=== PATIENT | female | born 1940 | race Caucasian/White ===

== ENCOUNTER 2018-12-04 08:51 | Observation (INO) | payer MEDICARE, OTHER ==
[~2018-12-04] VITALS: Ht 152.4 cm; Wt 68.0 kg
--- NOTE | 2018-12-04 09:01 | NUR ---
THIS IS A 78 YEAR OLD FEMALE WHO WAS BIB BY AMBULANCE DUE TO COPD AND CP, PT STATES PAIN 1 AT THIS TIME OUT OF 10. PT HAD NEBULIZER TX AND ASA IN ROUTE. 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
--- NOTE | 2018-12-04 09:54 | NUR ---
PT RESTING, AND ON PHONE, DENIES PAIN OR ANY NEEDS AT THIS TIME.
[2018-12-04] MEDS ORDERED: SODIUM CHLORIDE FLUSH 10ML SYR IVF ONE (10:00)
[2018-12-04] MEDS ORDERED: MORPHINE SULFATE 4 MG/ML, 1ML IVPush PRN (10:00)
[2018-12-04] MEDS ORDERED: ASPIRIN 81 MG TABLET CHEW PO ONE (10:00)
[2018-12-04 10:15] LABS: BASOPHILS # (AUTO) 0.02 x10^3/uL (0-0.1); BASOPHILS % (AUTO) 0 % (0-1); EOSINOPHILS # (AUTO) 0.14 x10^3/uL (0-0.4); EOSINOPHILS % (AUTO) 2 % (1-7); LYMPHOCYTES # (AUTO) 1.44 x10^3/uL (1-3.4); LYMPHOCYTES % (AUTO) 21 % (22-44); MD NO; MEAN CORPUSCULAR HEMOGLOBIN 28.3 pg (27.0-34.8); MEAN CORPUSCULAR HGB CONC 32.1 g/dL (32.4-35.8); MEAN CORPUSCULAR VOLUME 88.3 fL (80-100); MONOCYTES # (AUTO) 0.35 x10^3/uL (0.2-0.8); MONOCYTES % (AUTO) 5 % (2-9); NEUTROPHILS # (AUTO) 5.06 x10^3/uL (1.8-6.8); NEUTROPHILS % (AUTO) 72 % (42-75); PLATELET COUNT 372 x10^3/uL (130-400); RED BLOOD COUNT 4.63 x10^6/uL (3.82-5.3); RED CELL DISTRIBUTION WIDTH 14.4 % (9.6-15.2)
[2018-12-04 10:21] LABS: ALANINE AMINOTRANSFERASE 23 U/L (12-78); ALBUMIN 3.2 g/dL (3.4-5.0); ANION GAP 5 mmol/L (5-15); CALCIUM 8.3 mg/dL (8.5-10.1); CHLORIDE 106 mmol/L (98-107)
[2018-12-04 10:26] LABS: ALKALINE PHOSPHATASE 82 U/L (45-117); BILIRUBIN,TOTAL 0.4 mg/dL (0.2-1.0); CREATININE 0.73 mg/dL (0.55-1.02); TOTAL PROTEIN 6.7 g/dL (6.4-8.2); TROPONIN I < 0.015 ng/mL (0.000-0.045)
--- NOTE | 2018-12-04 11:05 | NUR ---
PT TO CT SCAN VIA [facility]
[2018-12-04] MEDS ORDERED: OMNIPAQUE 350 MG/ML, 100ML BOTTLE ONE (11:25)
[2018-12-04] MEDS ORDERED: SIMBACORT (12:07)
[2018-12-04] MEDS ORDERED: DEXT7.5T5 PO (12:08)
[2018-12-04] MEDS ORDERED: hydrALAzine 20 MG/ML, 1ML IVPush PRN (13:00)
[2018-12-04] MEDS ORDERED: ONDANSETRON 2MG/ML, 2ML IVPush PRN (13:00)
[2018-12-04] MEDS ORDERED: IBUPROFEN 600 MG TABLET PO PRN (13:00)
[2018-12-04] MEDS ORDERED: CEFTRIAXONE PMX 1GM/50ML 50 ML IV SCH (13:00)
[2018-12-04] MEDS ORDERED: ACETAMINOPHEN 325 MG TABLET PO PRN (13:00)
[2018-12-04] MEDS ORDERED: ALBUTEROL/IPRATROPIUM 2.5MG/0.5MG, 3 ML HHN SCH (13:00)
[2018-12-04] MEDS ORDERED: KETOROLAC 30 MG/1 ML IV PRN (13:00)
--- NOTE | 2018-12-04 13:00 | NUR ---
TASK RN: PT REPORT FROM RASHARD MANCUSO. PT CURRENTLY IN CT
[2018-12-04 13:35] LABS: FREE T4 (FREE THYROXINE) 1.01 ng/dL (0.76-1.46)
[2018-12-04] MEDS ORDERED: AZITHROMYCIN 500 MG in SODIUM CHLORIDE 0.9% 250 ML IV SCH (14:00)
[2018-12-04] MEDS: methylPREDNISolone SOD SUCC 125 MG/2 ML IVPush SCH ×2 (14:50→23:22)
[2018-12-04] MEDS: ENOXAPARIN 40 MG/0.4 ML SQ SCH (14:50)
[2018-12-04 14:51] VITALS: BP 125/72
[2018-12-04 17:09] LABS: TROPONIN I < 0.015 ng/mL (0.000-0.045)
[2018-12-04] MEDS ORDERED: DIPHENHYDRAMINE 50 MG CAPSULE PO ONE (17:30)
[2018-12-04] MEDS ORDERED: BUDE10.2 INH (18:16)
[2018-12-04] MEDS ORDERED: albuterol sulfate INH (18:16)
[2018-12-04] MEDS ORDERED: ALBUTEROL/IPRATROPIUM 2.5MG/0.5MG, 3 ML ONE (18:38)
[2018-12-04] MEDS: ALBUTEROL/IPRATROPIUM 2.5MG/0.5MG, 3 ML NPPB SCH (18:40)
[2018-12-04] MEDS: BUDESONIDE 0.5 MG/2 ML INHA INH SCH (18:40)
[2018-12-04 19:27] VITALS: BP 116/67
[2018-12-04 23:21] LABS: TROPONIN I < 0.015 ng/mL (0.000-0.045)
[2018-12-05 01:23] VITALS: BP 107/73
[2018-12-05] MEDS: ALBUTEROL/IPRATROPIUM 2.5MG/0.5MG, 3 ML NPPB SCH ×2 (02:12→07:50)
[2018-12-05 04:39] LABS: BASOPHILS % (AUTO) 0 % (0-1); EOSINOPHILS % (AUTO) 0 % (1-7); LYMPHOCYTES # (AUTO) 0.64 x10^3/uL (1-3.4); LYMPHOCYTES % (AUTO) 11 % (22-44); MD NO; MEAN CORPUSCULAR HEMOGLOBIN 27.9 pg (27.0-34.8); MEAN CORPUSCULAR HGB CONC 31.8 g/dL (32.4-35.8); MEAN CORPUSCULAR VOLUME 87.8 fL (80-100); MONOCYTES # (AUTO) 0.01 x10^3/uL (0.2-0.8); MONOCYTES % (AUTO) 0 % (2-9); NEUTROPHILS % (AUTO) 88 % (42-75); PLATELET COUNT 321 x10^3/uL (130-400); RED BLOOD COUNT 4.48 x10^6/uL (3.82-5.3); RED CELL DISTRIBUTION WIDTH 14.3 % (9.6-15.2)
[2018-12-05 04:48] LABS: CALCIUM 8.8 mg/dL (8.5-10.1); CHLORIDE 107 mmol/L (98-107); CREATININE 0.69 mg/dL (0.55-1.02)
[2018-12-05 04:58] LABS: ANION GAP 5 mmol/L (5-15)
[2018-12-05 07:25] VITALS: BP 108/67
[2018-12-05] MEDS: BUDESONIDE 0.5 MG/2 ML INHA INH SCH (07:50)
[2018-12-05] MEDS: methylPREDNISolone SOD SUCC 125 MG/2 ML IVPush SCH (08:35)
[2018-12-05] MEDS ORDERED: DOXYCYCLINE 100MG TABLET PO SCH (10:00)
[2018-12-05 12:56] VITALS: BP 133/73
[2018-12-05] MEDS: ENOXAPARIN 40 MG/0.4 ML SQ SCH (13:00)
[2018-12-05] MEDS ORDERED: METH4TAB2 PO (13:09)
== END 2018-12-05 15:10 | disposition home or self-care (01) ==
LOC: ED 10:18 → INTOOBSV 12:41 → EDIP 12:41 → 4WST 13:47 → DCLOUNGE 12-05 14:56
PROVIDERS: ADMIT Hospitalist; ATTEND Hospitalist
DX: J96.10 Chronic respiratory failure, unspecified whether with hypoxia or hypercapnia (principal); R65.11 Systemic inflammatory response syndrome (SIRS) of non-infectious origin with acute organ dysfunction; J44.1 Chronic obstructive pulmonary disease with (acute) exacerbation; R00.0 Tachycardia, unspecified; M79.89 Other specified soft tissue disorders; F41.9 Anxiety disorder, unspecified; R07.89 Other chest pain; Z87.891 Personal history of nicotine dependence; Z99.81 Dependence on supplemental oxygen
CPT/HCPCS: 36415; 71045; 71275; 80048; 80053; 83880; 84145; 84439; 84443; 84484; 85025; 85379; 93005; 93306; 93970; 94640; 96365; 96372; 96375; 96376; 99284; G0378; J0696; J1650; J2930; J7620; J7626; Q9967